=== PATIENT | female | born 1955 | race Caucasian/White ===

== ENCOUNTER → 2018-02-16 08:12 | Outpatient (CLI) | payer BC, SELFPAY ==
--- NOTE | 2018-02-16 08:15 | BI_ITS ---
MAMMOGRAPHY - BILATERAL SCREENING REASON FOR EXAM: Female, 62 years old. Routine annual screening examination. PERTINENT HISTORY: Grandmother with breast cancer. TECHNIQUE: Digital bilateral breast jacob (3D mammographic acquisition) in the CC and MLO projections. 2-D mediolateral oblique (MLO) and craniocaudad (CC) views of both breasts were obtained. CAD: Full Field Digital Mammography with Computer Added Detection was performed. COMPARISON: Comparison is made with prior study dated January 20, 2017 and August 05, 2015. FINDINGS: Breast Composition: There are scattered areas of fibroglandular density. There are no dominant masses or suspicious calcifications. No other significant abnormalities are identified. There has been no significant change since the prior study. BI/SCREENING MAMM (CAD), BILAT IMPRESSION: Stable bilateral screening mammogram. Yearly follow-up mammogram recommended. (A) ASSESSMENT CATEGORY: BIRADS Category 1: Negative. A letter regarding these results will be sent to the patient by the facility within 30 days. Approximately 10% of breast cancers are not detected by mammography. A normal mammogram should not delay biopsy of a clinically suspicious abnormality. [id number] Electronically Signed: Johan Bui MD at 9:35 EST Tel [phone], Service support ,
== END ==
PROVIDERS: Family Provider Family Medicine; PCP Family Medicine; Referring Provider Family Medicine; Visit Provider Family Medicine
DX: Z00.00 Encounter for general adult medical examination without abnormal findings (principal); Z12.31 Encounter for screening mammogram for malignant neoplasm of breast
CPT/HCPCS: 77063; 77067

== ENCOUNTER → 2019-02-21 08:24 | Outpatient (CLI) | payer BC, SELFPAY ==
--- NOTE | 2019-02-21 08:26 | BI_ITS ---
MAMMOGRAPHY - BILATERAL SCREENING REASON FOR EXAM: Female, 63 years old. Routine annual screening examination. PERTINENT HISTORY: Grandmother with breast cancer. TECHNIQUE: Digital bilateral breast jacob (3D mammographic acquisition) in the CC and MLO projections. 2-D mediolateral oblique (MLO) and craniocaudad (CC) views of both breasts were obtained. CAD: Full Field Digital Mammography with Computer Added Detection was performed. COMPARISON: Comparison is made with prior study dated February 16, 2018 and January 20, 2017. FINDINGS: Breast Composition: There are scattered areas of fibroglandular density. There are no dominant masses or suspicious calcifications. Stable small bilateral axillary lymph nodes. No other significant abnormalities are identified. There has been no significant change since the prior study. BI/SCREENING MAMM (CAD), BILAT IMPRESSION: Stable bilateral screening mammogram. Yearly follow-up mammogram recommended. (A) ASSESSMENT CATEGORY: BIRADS Category 2: Benign. A letter regarding these results will be sent to the patient by the facility within 30 days. Approximately 10% of breast cancers are not detected by mammography. A normal mammogram should not delay biopsy of a clinically suspicious abnormality. [id number] Electronically Signed: Johan Bui, at 9:52 EST , Service support ,
== END ==
PROVIDERS: Family Provider Family Medicine; PCP Family Medicine; Referring Provider Family Medicine; Visit Provider Family Medicine
DX: Z12.31 Encounter for screening mammogram for malignant neoplasm of breast (principal)
CPT/HCPCS: 77063; 77067

== ENCOUNTER → 2020-02-28 07:57 | Outpatient (CLI) | payer BC, SELFPAY ==
--- NOTE | 2020-02-28 08:00 | BI_ITS ---
MAMMOGRAPHY - BILATERAL SCREENING REASON FOR EXAM: Female, 64 years old. Routine annual screening examination. PERTINENT HISTORY: Grandmother with breast cancer. TECHNIQUE: Digital bilateral breast gurjit (3D mammographic acquisition) in the CC and MLO projections. 2-D mediolateral oblique (MLO) and craniocaudad (CC) views of both breasts were obtained. CAD: Full Field Digital Mammography with Computer Added Detection was performed. COMPARISON: Comparison is made with prior study dated 02/21/2019 and 02/16/2018. FINDINGS: Breast Composition: There are scattered areas of fibroglandular density. There are no dominant masses or suspicious calcifications. Stable benign appearing bilateral axillary lymph nodes. No other significant abnormalities are identified. There has been no significant change since the prior study. BI/SCREEN MAMM (CAD) W/GURJIT BILAT IMPRESSION: Stable bilateral screening mammogram. Yearly follow-up mammogram recommended. (A) ASSESSMENT CATEGORY: BIRADS Category 2: Benign. A letter regarding these results will be sent to the patient by the facility within 30 days. Approximately 10% of breast cancers are not detected by mammography. A normal mammogram should not delay biopsy of a clinically suspicious abnormality. [id number] Electronically Signed: Johan Bui, at 8:30 EST , Service support ,
== END ==
PROVIDERS: PCP Family Medicine; Referring Provider Family Medicine; Visit Provider Family Medicine
DX: Z12.31 Encounter for screening mammogram for malignant neoplasm of breast (principal)
CPT/HCPCS: 77063; 77067

== ENCOUNTER 2020-06-29 15:21 | Outpatient (RCR) | payer BC, SELFPAY ==
[2020-06-29] MEDS: COVID-19 VACC, MRNA(PFIZER)/PF 30 MCG/0.3 ML SYRINGE IM (09:38)
[2020-07-20] MEDS: COVID-19 VACC, MRNA(PFIZER)/PF 30 MCG/0.3 ML SYRINGE IM (09:28)
== END 2020-09-21 23:59 ==
LOC: IMMUN 15:21
PROVIDERS: PCP Family Medicine; Visit Provider Family Medicine
DX: Z23 Encounter for immunization (principal)
CPT/HCPCS: 0001A; 0002A; 91300

== ENCOUNTER → 2020-11-08 16:17 | Outpatient (CLI) | payer MEDICARE, BC, SELFPAY ==
[2020-11-08 16:28] LABS: Lyme Ab Screen Interpretation REF LAB
[2020-11-08 17:57] LABS: Absolute Lymphocyte Count 2.15 X10^3/uL (0.83-4.51); Absolute Neutrophil Count 7.6 X10^3/uL (2.0-7.7); Basophil# 0.02 X10^3/uL; Basophil% 0.2 % (0-1); Eosinophil# 0.03 X10^3/uL; Eosinophils% 0.3 % (0-5); Hematocrit 40.8 % (37-47); Hemoglobin 13.3 g/dL (12.0-15.0); Lymphocyte # 2.15 X10^3/ul (0.83-4.51); Lymphocyte % 20.2 % (19-41); Mean Corp Hgb Conc 32.6 g/dL (32-36); Mean Corpuscular Hgb 29.8 pg (27.0-32.0); Mean Corpuscular Volume 91.5 fL (81-99); Mean Platelet Vol. 12.1 fl (6.2-12.0); Monocyte# 0.81 X10^3/uL; Monocyte% 7.6 % (0-10); NRBC Flagged by Analyzer 0 % (0-5); Neutrophil # 7.63 X10^3/uL (2.7-7.7); Neutrophil % 71.5 % (47-70); Platelet Count 189 K/mm3 (150-450); RBC Distribution Width SD 47.3 fl (35.1-43.9); Red Blood Count 4.46 M/mm3 (4.2-5.4); White Blood Count 10.7 K/mm3 (4.4-11.0)
[2020-11-08 19:07] LABS: ALB/GLOB Ratio 1.2 RATIO (0.9-2.4); AST(SGOT) 28 U/L (15-37); Alanine Aminotransfer ALT/SGPT 23 U/L (13-56); Albumin, Serum 3.9 g/dL (3.2-5.0); Alkaline Phosphatase 94 U/L (45-117); Anion Gap 8 (5-15); BUN 8 mg/dL (7-18); BUN/Creat Ratio 15.1 RATIO (10-20); Calcium,Total 8.9 mg/dL (8.5-10.1); Chloride 105 mmol/L (98-107); Creatinine, Serum 0.53 mg/dL (0.55-1.02); EST Glomerular Filtration Rate 123 mL/min (>60); Est Glom Filt Rate - Afr Amer 149 mL/min (>60); Globulin 3.3 g/dL (2.2-4.2); Glucose 85 mg/dL (74-106); Potassium 3.5 mmol/L (3.5-5.1); Protein, Total 7.2 g/dL (6.4-8.2); Sodium Level 140 mmol/L (136-145)
[2020-11-10 14:46] LABS: Lyme Scn Total Ab w/Rflx <0.91 ISR (0.00-0.90)
== END ==
PROVIDERS: PCP Family Medicine; Visit Provider Family Medicine
DX: T14.8XXA Other injury of unspecified body region, initial encounter (principal); W57.XXXA Bitten or stung by nonvenomous insect and other nonvenomous arthropods, initial encounter
CPT/HCPCS: 36415; 80053; 85025; 86618

== ENCOUNTER → 2021-03-03 08:14 | Outpatient (CLI) | payer MEDICARE, BC, SELFPAY ==
--- NOTE | 2021-03-03 08:20 | BI_ITS ---
MAMMOGRAPHY - BILATERAL SCREENING REASON FOR EXAM: Female, 65 years old. Routine annual screening examination. PERTINENT HISTORY: Grandmother with breast cancer. TECHNIQUE: Digital bilateral breast gurjit (3D mammographic acquisition) in the CC and MLO projections. 2-D mediolateral oblique (MLO) and craniocaudad (CC) views of both breasts were obtained. CAD: Full Field Digital Mammography with Computer Added Detection was performed. COMPARISON: Comparison is made with prior study dated 02/28/2020 and 02/21/2019. FINDINGS: Breast Composition: There are scattered areas of fibroglandular density. There are no dominant masses or suspicious calcifications. Stable small benign-appearing bilateral axillary lymph nodes. No other significant abnormalities are identified. There has been no significant change since the prior study. BI/SCRN MAMM (CAD)W/GURJIT BILAT IMPRESSION: Stable bilateral screening mammogram. Yearly follow-up mammogram recommended. (A) ASSESSMENT CATEGORY: BIRADS Category 2: Benign. A letter regarding these results will be sent to the patient by the facility within 30 days. Approximately 10% of breast cancers are not detected by mammography. A normal mammogram should not delay biopsy of a clinically suspicious abnormality. [id number] Electronically Signed: Johan Bui MD at 9:19 EST , Service support ,
--- NOTE | 2021-03-03 09:06 | BD_ITS ---
STUDY: DUAL ENERGY X-RAY ABSORPTIOMETRY / DXA REASON FOR EXAM: Female, 65 years old. 627.8Menopausal postmenopausalBONE DENSITY REASON FOR EXAM TECHNIQUE: Bone Mineral Density (BMD) measurements of lumbar spine and bilateral hips were obtained. COMPARISON: None. FINDINGS: Lumbar Spine (L1-L4): g/cm2 (0.653) / T-score (-3.3) / Z-score (-1.6) Findings are suggestive of osteoporosis with a high fracture risk. Left Femur Total: g/cm2 (0.713) / T-score (-1.9) / Z-score (-0.6) Left Femoral Neck: g/cm2 (0.595) / T-score (-2.3) / Z-score (-0.8) Right Femur Total: g/cm2 (0.694) / T-score (-2.0) / Z-score (-0.8) Right Femoral Neck: g/cm2 (0.557) / T-score (-2.6) / Z-score (-1.1) BD/Dexa Bone Density Study IMPRESSION: The patient is considered osteoporotic as outlined below according to World Adria Organization (WHO) criteria with a high fracture risk. Reference Information: The T-score is the number of standard deviations above or below the standard which is normal for young adults at their peak bone mineral density. The World Health Organization (WHO) interprets the T-scores as follows: Above -1 Normal bone density Between -1 and -2.5 Osteopenia Equal to / or below -2.5 Osteoporosis As a practical clinical guideline, osteopenia may be graded as follows: Mild -1 through -1.5 Moderate -1.6 through -2.0 Severe -2.1 through -2.4 The Z-score is the number of standard deviations above or below age-matched controls. A Z-score of less than -1.5 would be considered abnormal. References: 1. NIH Osteoporosis and Related Bone Diseases www osteo.org 2. International Society for Clinical Densitometry www iscd.org 3. National Osteoporosis Foundation www nof.org Electronically Signed: Johan Bui MD at 15:26 EST , Service support ,
== END ==
PROVIDERS: PCP Family Medicine; Referring Provider Family Medicine; Visit Provider Family Medicine
DX: Z00.00 Encounter for general adult medical examination without abnormal findings (principal); Z12.31 Encounter for screening mammogram for malignant neoplasm of breast; Z78.0 Asymptomatic menopausal state
CPT/HCPCS: 77063; 77067; 77080

== ENCOUNTER → 2021-03-09 09:11 | Outpatient (CLI) | payer MEDICARE, BC, SELFPAY ==
[2021-03-09 11:07] LABS: PTHIN 49.3 pg/mL (18.4-80.1)
[2021-03-09 11:10] LABS: Vitamin D,25 Hydroxy 36.9 ng/mL
[2021-03-09 11:19] LABS: Anion Gap 8 (5-15); BUN 8 mg/dL (7-18); Chloride 105 mmol/L (98-107); Creatinine, Serum 0.61 mg/dL (0.55-1.02); EST Glomerular Filtration Rate 104 mL/min (>60); Est Glom Filt Rate - Afr Amer 125 mL/min (>60); Glucose 108 mg/dL (74-106); Magnesium 2.3 mg/dL (1.6-2.6); Phosphorus 3.6 mg/dL (2.5-4.9); Potassium 4.2 mmol/L (3.5-5.1); Sodium Level 140 mmol/L (136-145); Thyroid Stim Hormone (TSH) 1.04 uIU/mL (0.358-3.74)
== END ==
PROVIDERS: PCP Family Medicine; Referring Provider Family Medicine; Visit Provider Family Medicine
DX: M81.0 Age-related osteoporosis without current pathological fracture (principal)
CPT/HCPCS: 80048; 82306; 82330; 83735; 83970; 84100; 84443

== ENCOUNTER → 2021-12-06 | Outpatient (CLI) | payer MEDICARE, BC, SELFPAY ==
[2021-12-06 13:03] LABS: PTHIN 49.2 pg/mL (18.4-80.1)
[2021-12-06 13:04] LABS: Vitamin D,25 Hydroxy 49.2 ng/mL
[2021-12-06 13:36] LABS: Anion Gap 5 (5-15); BUN 8 mg/dL (7-18); BUN/Creat Ratio 11.4 RATIO (10-20); Chloride 110 mmol/L (98-107); Cholesterol 233 mg/dL (200); EST Glomerular Filtration Rate 89 mL/min (>60); Est Glom Filt Rate - Afr Amer 107 mL/min (>60); Glucose 109 mg/dL (74-106); High Density Lipoprotein 53 mg/dL; Potassium 4.3 mmol/L (3.5-5.1); Sodium Level 141 mmol/L (136-145); Triglycerides 135 mg/dL; Very Low Density Lipoprotein 27 mg/dL (5-40)
== END | disposition home or self-care (01) ==
LOC: MFPLAB 10:25
PROVIDERS: PCP Family Medicine; Visit Provider Family Medicine
DX: M81.0 Age-related osteoporosis without current pathological fracture (principal); E78.5 Hyperlipidemia, unspecified
CPT/HCPCS: 36415; 80048; 80061; 82306; 82330; 83970; 84443

== ENCOUNTER 2022-03-06 08:26 | Outpatient (CLI) | payer MEDICARE, BC, SELFPAY ==
--- NOTE | 2022-03-06 08:27 | BI_ITS ---
MAMMOGRAPHY - BILATERAL SCREENING REASON FOR EXAM: Female, 66 years old. Routine annual screening examination. PERTINENT HISTORY: Grandmother with breast cancer. TECHNIQUE: Digital bilateral breast gurjit (3D mammographic acquisition) in the CC and MLO projections. 2-D mediolateral oblique (MLO) and craniocaudad (CC) views of both breasts were obtained. CAD: Full Field Digital Mammography with Computer Added Detection was performed. COMPARISON: Mammogram from 03/03/2021, 02/28/2020. FINDINGS: Breast Composition: There are scattered areas of fibroglandular density. There are no dominant masses or suspicious calcifications. No other significant abnormalities are identified. There has been no significant change since the prior study. BI/SCRN MAMM (CAD)W/GURJIT BILAT IMPRESSION: Stable bilateral screening mammogram. Yearly follow-up mammogram recommended. (A) ASSESSMENT CATEGORY: BIRADS Category 1: Negative. A letter regarding these results will be sent to the patient by the facility within 30 days. Approximately 10% of breast cancers are not detected by mammography. A normal mammogram should not delay biopsy of a clinically suspicious abnormality. Electronically Signed: Chase Mcguire, at 16:42 EST ,
== END 2022-03-06 23:59 | disposition home or self-care (01) ==
LOC: OPBI 08:26
PROVIDERS: PCP Family Medicine; Visit Provider Family Medicine
DX: Z12.31 Encounter for screening mammogram for malignant neoplasm of breast (principal); Z80.3 Family history of malignant neoplasm of breast
CPT/HCPCS: 77063; 77067

== ENCOUNTER → 2022-09-19 | Outpatient (CLI) | payer MEDICARE, BC, SELFPAY ==
--- NOTE | 2022-09-19 08:48 | BI_ITS ---
MAMMOGRAPHY - UNILATERAL DIAGNOSTIC: LEFT BREAST REASON FOR EXAM: Female, 67 years old. Two-week history of a left breast lump. PERTINENT HISTORY: Grandmother with breast cancer. TECHNIQUE: Digital unilateral breast jacob (3D mammographic acquisition) in the CC and MLO projections. 2-D mediolateral oblique (MLO) and craniocaudad (CC) views of both breasts were obtained. CAD: Full Field Digital Mammography with Computer Added Detection was performed. COMPARISON: Comparison is made with prior study March 06, 2022. FINDINGS: Breast Composition: There are scattered areas of fibroglandular density. The palpable lump corresponds to a 2 cm x 1.2 cm spiculated nodule in the central slightly lateral aspect of the left breast. Correlation with ultrasound is recommended. No other significant abnormalities are identified. BI/DIAG MAMM W/CAD, UNILAT IMPRESSION: The palpable lump corresponds to a 2 cm x 1.2 cm spiculated nodule in the central slightly lateral aspect of the left breast. Correlation with ultrasound is recommended. ASSESSMENT CATEGORY: BIRADS Category 0: Incomplete. Need additional imaging evaluation. A letter regarding these results will be sent to the patient by the facility within 30 days. Approximately 10% of breast cancers are not detected by mammography. A normal mammogram should not delay biopsy of a clinically suspicious abnormality. Electronically Signed: Johan Bui MD at 10:22 EDT ,
--- NOTE | 2022-09-19 08:48 | US_ITS ---
STUDY: ULTRASOUND BREAST - LEFT REASON FOR EXAM: Female, 67 years old. Palpable lump left breast. Abnormal screening mammogram. TECHNIQUE: Axial and longitudinal images of the LEFT breast were performed with a high resolution ultrasound transducer. # OF IMAGES: 46 COMPARISON: Comparison is made with prior mammogram done earlier today. FINDINGS: LEFT Breast: The mammographic abnormality corresponds to a 1.3 cm x 0.8 cm x 0.9 cm spiculated hypoechoic solid nodule at the 4:00 position of the breast at 2 cm from the nipple. Biopsy is recommended. US/Breast Limited Unilateral IMPRESSION: 1.3 cm x 0.8 cm x 0.9 seconds thick liquid and a hypoechoic solid nodule at the 4:00 position of the breast at 2 cm from the nipple. Biopsy recommended. ASSESSMENT CATEGORY: BIRADS Category 4: Suspicious - Biopsy Should Be Considered. A letter regarding these results will be sent to the patient by the facility within 30 days. Electronically Signed: Johan Bui MD at 10:24 EDT ,
== END | disposition home or self-care (01) ==
LOC: OPBI 08:46
PROVIDERS: PCP Family Medicine; Referring Provider Nurse Practitioner Family; Visit Provider Nurse Practitioner Family
DX: N63.23 Unspecified lump in the left breast, lower outer quadrant (principal)
CPT/HCPCS: 76642; 77061; 77065; G0279

== ENCOUNTER → 2022-09-22 | Outpatient (CLI) | payer MEDICARE, BC, SELFPAY ==
--- NOTE | 2022-09-22 | BRBX_PTH ---
PATIENT: COLTON CRABTREE LOC: [facility] U#:[id number] AGE/SX: 67/F ROOM: RE09/22/[address]: Dr. Thaddeus Daniel MD : 1955 BED: DIS: 09/22/2022 SPEC #: [id number] RECD: 09/22/22 13:24 STATUS: WILMA SHARON #: [id number] JOANNE: 09/22/22 00:[address]: Thaddeus Daniel DEPT: SURGICAL PATHOLOGY RECD BY: Ariel Flanagan Tissues: Left breast, NOS Procedures: Surgery Specimen Level IV HEADER OPERATION: Left breast nodule biopsy PRE-OP DIAGNOSIS: Left breast nodule TISSUE SUBMITTED: Left breast tissue MICROSCOPIC DIAGNOSIS Left breast nodule, core biopsy: Invasive lobular carcinoma, nuclear grade 1 (1.5 cm in greatest length). See comment. TERRIE:ta 09/25/2022 COMMENT Immunohistochemistry ([id number]) supports the above diagnosis. ER/ND/Sxi3djy studies are being performed on sections of tumor and the results from this study will be reported separately ([id number]). MICROSCOPIC DESCRIPTION Slides are reviewed. GROSS DESCRIPTION Received in fixative is one container labeled with the patient's name and designated left breast. The specimen consists of multiple elongated fragments of leach-yellow fibroadipose tissue that in aggregate measure 1.5 x 0.5 x 0.1 cm. The entire specimen is submitted in one cassette. / SJ:ta 09/22/2022 TC:0 CPT: 03257 ADDENDUM ADDENDUM ADDENDUM ADDENDUM ADDENDUM ADDENDUM ADDENDUM ADDENDUM 12/20/2022 09:55 ADDENDUM 12/20/2022 09:55 ADDENDUM 12/20/2022 09:55 ADDENDUM 12/20/2022 09:55 ADDENDUM 12/20/2022 09:55 An order for Oncotype testing was received from Dr. Beaulieu. This necessitated case review, block and slide selection by pathologist at [facility]. Breast Cancer Recurrence Score = 9 Results of the complete Oncotype testing ([employer] report) are viewable in EMR under: Reports - Pathology - Lab Pathology Report, Scanned.
--- NOTE | 2022-09-22 | IMM_PTH ---
PATIENT: COLTON CRABTREE LOC: [facility] U#:[id number] AGE/SX: 67/F ROOM: RE09/22/[address]: Dr. Thaddeus Daniel MD : 1955 BED: DIS: 09/22/2022 SPEC #: [id number] RECD: 09/25/22 13:10 STATUS: WILMA REQ #: [id number] JOANNE: 09/22/22 00:[address]: Thaddeus Daniel DEPT: IMMUNOHISTOCHEMISTRY RECD BY: Queta Mak Tissues: Left breast, NOS Procedures: CALPONIN-1 (add) CK5-6 (add) CK8 (add) E-CAD (add) HER2 JOHN (add) KI-67 (add) P53 (add) TX (add) P40 (add) ER (initial) PHYSICIAN & INSTITUTION [place] [id number] SPECIMEN INFORMATION: Tissue Source: Left breast nodule Clinical Info: : Left breast nodule Specimen Number: [id number] CPT code: 03033, 08322 x6, 50273 x3 METHODOLOGY: Deparaffinized sections of prefer/formalin-fixed tissue or PAP/DQ stained slides are incubated with monoclonal/polyclonal antibodies/oligonucleotide probes. Localization is made via biotin free immunoperoxidase method. Appropriate controls are performed and reacted as expected. Results on target cell population are indicated in the following table: RESULTS: ANTIBODY / CLONE RESULT E-Cad (ECH-6) negative CK8 (03awypX38) positive Calponin-1 (RO188T) negative CK5-6 (D5 & 1684) negative P40 (BC28) negative P53 (DO-7) positive, focal, wild type pattern Ki-67 (30-9) positive, low ~10% MORPHOMETRIC ANALYSIS ER (clone 6F11) >95%, strong intensity TX (clone 16/1E2) >95%, strong intensity Her-2Neu (clone CB11) 0-1+ The prognostic test for HER2 is performed on formalin-fixed paraffin embedded tissue. A 3+ (positive) staining pattern is defined as intense, homogeneous, complete, circumferential membranous staining in >10% of contiguous tumor cells. A similar weak (2+) staining pattern is interpreted as equivocal. LASHELL follow-up testing is recommended for all equivocal cases. Positivity/negativity for ER/TX is reported if > or < 1% of the tumor cells are immuno- reactive, respectively. The ASCO/CAP criteria is used for scoring. Reference: Journal of Clinical Oncology, 2013; 31:2431-7576 & 2010; 16:6434-5175. Duration of fixation: 59.5 Hrs; Sample Adequate: Yes. These assays have not been validated on decalcified tissues. Results should be interpreted with caution given the likelihood of false negativity on decalcified specimens. These tests were developed and their performance characteristics determined by [facility]. They may not have been cleared or approved by the U.S. Food and Drug Administration. The FDA has determined that such clearance or approval is not necessary. The above immunohistochemical/dualISH markers are ordered and reviewed by the Pathologist. INTERPRETATION: Left breast nodule, core biopsy: Invasive lobular carcinoma. Positive for estrogen receptors (favorable prognostic indicator). Positive for progesterone receptors (favorable prognostic indicator). Negative for overexpression of XQJ6iwx. SJ:ta 09/26/2022
== END | disposition home or self-care (01) ==
LOC: LABSPEC 11:38
PROVIDERS: Referring Provider Surgery; Visit Provider Surgery
DX: N63.20 Unspecified lump in the left breast, unspecified quadrant (principal)
CPT/HCPCS: 88305; 88341; 88342

== ENCOUNTER 2022-10-04 10:53 | Outpatient (CLI) | payer MEDICARE, BC, SELFPAY ==
--- NOTE | 2022-10-04 11:09 | MRI_ITS ---
STUDY: BILATERAL BREAST MR WITHOUT AND WITH CONTRAST REASON FOR EXAM: Female, 67 years old. Breast lump. Positive biopsy for lobular carcinoma of the breast. TECHNIQUE: Multi-sequence multi-echo imaging of both breasts was performed with a dedicated breast coil. T1-weighted and T2-weighted images were performed before the administration of contrast. T1-weighted images were also performed after the intravenous administration of IV 14 CC of CLARISCAN contrast. COMPARISON: Prior mammograms dated March 03, 2021, March 06, 2022 and September 19, 2022. Left breast ultrasound dated September 19, 2022. FINDINGS: RIGHT BREAST: Fatty replaced breast tissue with minimal background enhancement. No abnormal enhancing masses or areas of non-mass enhancement in the right breast. LEFT BREAST: Fatty replaced breast tissue with minimal background enhancement. Irregular enhancing mass in the left breast at approximately the 4:00 position measuring 2.8 cm x 1.3 cm x 1.5 cm corresponding to the index lesion noted on mammogram and ultrasound. No other enhancing areas identified. Shotty lymph nodes in the axilla with no enlargement. No abnormality in the visualized regions of the chest or liver. MRI/Breast Bilateral W/O and W IMPRESSION: Irregular enhancing mass in the left breast corresponding to the findings on mammogram and ultrasound and representing the index lesion. No other abnormality. CATEGORY: BIRADS Category 6: Known Biopsy-Proven Malignancy - Appropriate Action Should Be Taken. A letter regarding these results will be sent to the patient by the facility within 30 days. Electronically Signed: Raymond Kan MD at 9:35 EDT ,
[2022-10-04 11:43] LABS: CREATININE FINGERSTICK < 0.9 mg/dL (0.55-1.02); EGFR FINGERSTICK > 60.0000 mL/min (>60)
== END 2022-10-04 23:59 | disposition home or self-care (01) ==
LOC: MRI 10:55
PROVIDERS: PCP Family Medicine; Referring Provider Surgery; Visit Provider Surgery
DX: C50.912 Malignant neoplasm of unspecified site of left female breast (principal)
CPT/HCPCS: 77049; A9575; A4216; C8908

== ENCOUNTER 2022-10-24 08:33 | Day surgery (SDC) | payer MEDICARE, BC, SELFPAY ==
--- NOTE | 2022-10-24 | IMM_PTH ---
PATIENT: COLTON CRABTREE LOC: [facility] [place] U#:[id number] AGE/SX: 67/F ROOM: RE10/24/[address]: Dr. Thaddeus Daniel MD : 1955 BED: DIS: 10/24/2022 SPEC #: [id number] RECD: 10/27/22 13:01 STATUS: WILMA REWaylon #: [id number] JOANNE: 10/24/22 00:[address]: Thaddeus Daniel DEPT: IMMUNOHISTOCHEMISTRY RECD BY: Gisell Hurtado ENTERED: 10/27/22 13:02 SP TYPE: IMMUNO OTHR DR: Dr. Curt Weiss MD Tissues: A - Lymph node, NOS Procedures: CK8 (initial) CK8 (add) Pankeratin (add) PHYSICIAN & INSTITUTION [place] [id number] SPECIMEN INFORMATION: Tissue Source: Left breast axillary sentinel nodes Clinical Info: Invasive lobular carcinoma of left breast Specimen Number: [id number] A1 & A2 CPT code: 47256, 95139 x3 METHODOLOGY: Deparaffinized sections of prefer/formalin-fixed tissue or PAP/DQ stained slides are incubated with monoclonal/polyclonal antibodies/oligonucleotide probes. Localization is made via biotin free immunoperoxidase method. Appropriate controls are performed and reacted as expected. Results on target cell population are indicated in the following table: RESULTS: ANTIBODY / CLONE RESULT Block A1 CK8 (07jhpqT55) negative AE1-3 (AE1/AE3/PCK26) negative Block A2 CK8 (04sctqJ45) negative AE1-3 (AE1/AE3/PCK26) negative These tests were developed and their performance characteristics determined by [facility]. They may not have been cleared or approved by the U.S. Food and Drug Administration. The FDA has determined that such clearance or approval is not necessary. The above immunohistochemical/dualISH markers are ordered and reviewed by the Pathologist. INTERPRETATION: Left axillary sentinel lymph nodes, biopsy: Two out of two lymph nodes negative for carcinoma. AM:ta 10/30/2022
--- NOTE | 2022-10-24 08:40 | NM_ITS ---
PROCEDURE: NUCLEAR MEDICINE Injection Marcus Hook Node - LEFT breast(s). REASON FOR EXAM: Female, 67 years old. TECHNIQUE: Marcus Hook node localization using left breast cancer. Radionuclide methods of the LEFT breast(s) was performed following subcutaneous administration of 1.1 mCi of of sulfur colloid Tc-99m. FINDINGS: 1.1 mCi of technetium labeled sulfur colloid was injected subcutaneously in 4 equal aliquots in the left periareolar region. NM/Lymph Node Injection Only IMPRESSION: Subcutaneous injection of 1.1 mCi of technetium labeled sulfur colloid for sentinel node imaging. Electronically Signed: Johan Bui MD at 10:39 EDT ,
[2022-10-24 09:09] VITALS: BP 122/56; PULSE 67; RESP 16; TEMP 36.7; O2SAT 94; BMI 24.0
[2022-10-24] MEDS: Lactated Ringers 1,000 ML 15 ML IV (09:16)
--- NOTE | 2022-10-24 11:41 | PCM.HP.BLA ---
History and Physical Date of Admission: 10/24/22 Intake Intake Visit Reasons: DISCUSS MRI RESULTS Chief Complaint: discuss MRI results Allergies erythromycin base Allergy (Verified 10/13/22 14:11) Hives Medications calcium carbonate 500 mg calcium (1,250 mg) chewable tablet (Calcium 500) 500 mg PO DAILY 09/22/22 [History Confirmed 10/13/22] cholecalciferol (vitamin D3) 25 mcg (1,000 unit) capsule 25 mcg PO DAILY 09/22/22 [History Confirmed 10/13/22] PFSH Medical History (Updated 10/18/22 @ 09:30 by Maranda Alcazar) Skin lesion Social History Smoking Status: Never smoker alcohol intake: current substance use type: does not use HPI HPI HPI: Patient is a 67-year-old female here with left breast cancer. Patient is here to discuss surgery. ROS General General: No weight change or fatigue HEENT HEENT: No difficulty swallowing Endo Endocrine: No thyroid disease Musc Musculoskeletal: No back problems or arthritis Cardio Cardiovascular: No pacemaker, heart disease, atrial fibrillation, high blood pressure, heart attack, heart stent, palpitations or chest pain Psych Psychiatric: No depression or anxiety Resp Respiratory: No shortness of breath, No cough, No COPD, No asthma and No emphysema Gastro Gastrointestinal: No abdominal pain, No nausea or vomiting, No diarrhea, No constipation, No blood in stool, No acid reflux, No hemorrhoids, No ulcers, No gallbladder problem and No black,tarry stools Vel Hematologic: No blood thinners Exam Const General: cooperative Orientation: alert and oriented x3 HENMT Head: normal to inspection Neck Neck: normal visual inspection and full ROM Chest Chest palpation & inspection: normal inspection of the chest Resp Effort & Inspection: normal respiratory effort Auscultation: clear to auscultation bilaterally Cardio Rate: regular rate Rhythm: regular rhythm GI Inspection: non-distended Palpation: soft and nontender Skin General: no rashes or lesions noted Neuro General: patient alert and patient oriented x3 Extrem General: full ROM Psych Appearance: grossly normal Mental Status: mental status grossly normal Assessment and Plan Assessment and Plan (1) Invasive lobular carcinoma of left breast in female: Status: Acute Plan: Patient has an invasive lobular cancer of the left breast. It is in the lower outer quadrant. She had an MRI which did not show any further lesions in either breast. I discussed partial mastectomy with her with sentinel lymph node biopsy. Patient understands the risks including but not limited to bleeding, infection, need for further surgery for margins, nerve injury, hematoma formation or seroma formation. Patient will be scheduled for left partial mastectomy with sentinel lymph node biopsy. Thaddeus Daniel MD Pager: [facility] [address] [place] [address], [address] [place] [address] Office: I have examined the patient and the H&P has been reviewed. There are no clinical changes since date of exam.
[2022-10-24] MEDS: Cefazolin 2 GM in 0.9% Normal Saline 100 ML IV (11:56)
--- NOTE | 2022-10-24 12:00 | BRBX_PTH ---
PATIENT: COLTON CRABTREE LOC: [facility] [place] U#:[id number] AGE/SX: 67/F ROOM: RE10/24/[address]: Dr. Thaddeus Daniel MD : 1955 BED: DIS: 10/24/2022 SPEC #: [id number] RECD: 10/24/22 12:40 STATUS: WILMA SHARON #: [id number] JOANNE: 10/24/22 12:[address]: Thaddeus Daniel DEPT: SURGICAL PATHOLOGY RECD BY: Gisell Hurtado ENTERED: 10/24/22 14:31 SP TYPE: BREAST BX OTHR DR: Dr. Curt Weiss MD Tissues: A - LYMPH NODE BIOPSY B - Left breast, NOS C - Left breast, NOS D - Left breast, NOS E - Left breast, NOS Procedures: Frozen Section (charge) Surgery Specimen Level IV Surgery Specimen Level V HEADER OPERATION: Breast ultrasound guided wire localization, partial mass PRE-OP DIAGNOSIS: Invasive lobular carcinoma of left breast TISSUE SUBMITTED: A. Left breast axillary sentinel nodes, B. Left breast mass, C. Left breast skin lesion, D. Left breast new anterior margin, E. Left breast new superior margin FROZEN SECTION DIAGNOSIS A. Left axillary sentinel lymph nodes, biopsy: Two of two lymph nodes negative for carcinoma. AM:ale 10/24/2022 MICROSCOPIC DIAGNOSIS A. Left breast axillary sentinel lymph nodes, biopsy: Two out of two lymph nodes, negative for carcinoma. See comment. B. Left breast mass, lumpectomy: Invasive lobular carcinoma. Lobular carcinoma in situ. Atypical lobular hyperplasia. See cancer template below. C. Left breast skin lesion, biopsy: Seborrheic keratosis. D. Left breast, new anterior margin, biopsy: No evidence of carcinoma. E. Left breast, new superior margin, biopsy: Invasive lobular carcinoma extending to new margin of excision. Lobular carcinoma in situ (<0.1 mm from new margin). See comment. AM:ta 10/30/2022 COMMENT A. Immunohistochemistry ([id number]) supports the above diagnosis. E. Sections show a 4 mm invasive lobular carcinoma extending to the inked and cauterized anterior margin of excision. Clinical correlation is suggested. INVASIVE BREAST CANCER SUMMARY: Procedure - excision with wire guidance Specimen: Type - partial breast Size - 5.5 x 4.0 x 3.0 cm Laterality - left breast Tumor: Site - not specified Size - 1.8 x 1.5 x 1.5 cm Histologic type - invasive lobular carcinoma. Focality - single focus of invasive carcinoma. Histologic Grade (Grandy grade): Glandular/tubular differentiation - score 3 Nuclear pleomorphism - score 2 Mitotic count - score 1 Overall grade - 2 (score of 6) Ductal carcinoma in situ: Not present Lobular carcinoma in situ (LCIS) - present Tumor extension: Skin - not applicable Nipple - not applicable Skeletal muscle - no skeletal muscle present. Margins: Tumor extends focally to the inked anterior margin of excision. Distance of in situ carcinoma from closest margin - 0.1 mm (superior margin) Lymph nodes: Number of sentinel lymph nodes examined - 2 Total number of lymph nodes examined (sentinel and nonsentinel) - 2 Number of lymph nodes with macrometastases, micrometastases and isolated tumor cells - 0 See specimen A. Treatment effect: Unknown Lymphvascular invasion - not identified Additional pathologic findings - atypical lobular hyperplasia and fibrocystic change. Ancillary studies - previously performed on section of tumor ([id number] / [id number]). ER - >95%, strong intensity MN - >95%, strong intensity Her2 eusebio - 0-1+ (negative) PATHOLOGIC STAGE: pT N M The above summary is in compliance with [employer] (CAP) Cancer Protocols Checklist and [place] Joint Committee on Cancer (AJCC), Staging Manual, 8th Ed. Case has been reviewed in consultation with Dr. Nichole who concurs with the above diagnosis. IDC:SJ MICROSCOPIC DESCRIPTION Slides are reviewed. GROSS DESCRIPTION A. Received fresh for frozen section consultation labeled with the patient's name is a specimen designated left axillary sentinel lymph nodes. The specimen consists of one irregular fragment of light leach soft tissue that measures x x cm. The specimen is totally submitted in two cassettes. / 10/24/2022 B. Received fresh for intraoperative consultation labeled with the patient name and designated left breast mass. is a piece of fibroadipose tissue measuring 5.5 x 4x 3.0 cm. The specimen is oriented by sutures, short superior and long lateral. The specimen is inked as follows: anterior - yellow, posterior - black, superior - blue, inferior - green, medial - red and lateral - orange. Serial sections reveal a leach indurated mass measuring 1.8 x 1.5 x 1.5 cm. The tumor is very close to the anterior margin, however, does not appear to be transected. This information is conveyed to the surgeon intraoperatively. Section of?the rest of the specimen reveal leach yellow adipose cut surfaces mixed with fibrous area. The specimen is totally submitted in 12 cassettes as follows: 1 - perpendicular medial and lateral margins, 2??perpendicular superior, inferior and posterior margins, 3-8 - tumor with closest anterior margin, 912??rest of the specimen. / 10/25/22 C. Received is one container labeled with the patient name and designated left breast skin lesion. The specimen consists of one irregular piece of leach white skin that measures 1.3 x 0.7 x 0.3 cm. The specimen is inked, serially sectioned and submitted entirely in one cassette. / 10/25/22 D. Received is one container labeled with the patient name and designated left breast new anterior margin. The specimen consists of a piece of fibroadipose tissue that measures 2.5 x 2.5 x 1 cm. The specimen is oriented by a suture as new margin. The specimen is inked as follows, new margin black and old margin blue. The specimen is serially sectioned and do not reveal any mass lesion and submitted in entirely in three cassettes. / 10/25/22 E. Received is one container labeled with the patient name and designated left breast new superior margin. The specimen consists of a piece of fibroadipose tissue that measures 2.0 x 1.5 x 1 cm. The specimen is oriented by a suture as new margin. The specimen is inked as follows, new margin black and old margin blue. The specimen is serially sectioned and do not reveal any mass lesion and submitted in entirely in two cassettes. / TERRIE 10/25/22 TC:0 CPT: 70391 x2, 00936 x3
[2022-10-24] MEDS: 0.9% Normal Saline (Pres. free 10 ML Vial (12:05)
[2022-10-24] MEDS: Isosulfan Blue 1% 5 ML Vial (12:05)
--- NOTE | 2022-10-24 12:14 | OP.PCM_ITS ---
Problems Associated Problem List Diagnoses (1) Invasive lobular carcinoma of left breast in female: Report of Operation Date of Procedure: 10/24/22 Pre-Operative Diagnosis: Left breast lobular cancer, lower outer quadrant Suspicious skin lesion of the left breast Post-Operative Diagnosis: Same Surgery/Procedure Performed:: 1. Ultrasound-guided wire localization 2. Left axillary sentinel lymph node biopsy 3. Left partial mastectomy 4. Excision of left breast skin lesion 5. New superior margin 6. New anterior margin Type of Anesthesia: General/Regional Specimen's removed: 1. Left axillary lymph nodes 2. Left partial mastectomy 3. Left breast skin lesion, 1.5 cm Description of Procedure: Synoptic Portion: Element Response Options Operation performed with curative intent. Yes Tracer(s) used to identify sentinel nodes in the upfront surgery (non- neoadjuvant) setting (select all that apply). N/A Tracer(s) used to identify sentinel nodes in the neoadjuvant setting (select all that apply). Dye and radiotracer All nodes (colored or non-colored) present at the end of a dye-filled lymphatic channel were removed. Yes All significantly radioactive nodes were removed. Yes All palpably suspicious nodes were removed. N/A Biopsy-proven positive nodes marked with clips prior to chemotherapy were identified and removed. N/A Patient was brought back to the operating room and the left breast was inspected with ultrasound. The mass was identified and under direct ultrasound guidance the wire was placed into the mass. Next 5 cc of Lymphazurin was injected in the subareolar space in the left breast. Next 5 cc of saline was injected in the subareolar space in the left breast. The left breast was then massaged. The left breast and axilla were prepped in the normal sterile fashion. Left axillary incision was marked and injected with local anesthetic. Scalpel was used to make incision and deepened the incision to the axillary fascia. The axillary fascia was incised. 2 lymph nodes were identified and both were removed using clips and sharp dissection. The axilla was inspected with the neoprobe and there were no further radioactive lesions or blue lesions. There were no more palpable lesions. The axilla was irrigated and suctioned dry and packed with a wet Ray-Elham. Next an incision was made in the 4 o'clock position of the breast and electrocautery was used to maintain hemostasis. The wire was brought into the incision. The wire was followed down to the mass. Mass was excised using electrocautery dissection. It was sent for pathology and x-ray and it was marked. The x-ray confirmed that the clip was in the mass as well as the entire wire. The cavity was irrigated and suctioned dry and hemostasis was obtained using electrocautery. The margins on the mass came back close anteriorly. Next a new anterior margin and new superior margin were taken and marked with suture and sent for pathology. The skin incisions of both areas were closed with interrupted 3-0 Vicryl suture and running 4-0 Monocryl. Next the medial left breast skin lesion was excised. It was injected with local anesthetic and an elliptical incision was made around this lesion. The lesion in border measured 1.5 cm in longest dimension. It was sent for pathology. The subcutaneous tissue was cauterized and then the lesion was closed with a running 4-0 Monocryl suture. Glue was applied to all incisions. Patient was awoken and taken to PACU in stable condition. Admit VTE Documentation VTE Mechan Device Prophylaxis: SCD's
[2022-10-24] MEDS: Lidocaine 1% /Epi 1:100 (20ml) 20 ML Vial (12:20)
--- NOTE | 2022-10-24 12:50 | BI_ITS ---
SURGICAL BREAST SPECIMEN RADIOGRAPH CLINICAL: Document presence of tissue clip marker in biopsy specimen. FINDINGS: Specimen shows presence of tissue clip marker. Electronically Signed: Johan Bui MD at 13:24 EDT , BI/Breast Biopsy Specimen IMPRESSION: undefined
--- NOTE | 2022-10-24 12:58 | DCINST_ITS ---
Discharge Instructions Diet Discharge Diet: No restrictions Activity Discharge Activity: May Not Drive (for 2-3 days or while taking narcotic pain medications.) and May Shower (tomorrow) Lifting Restrictions: 15 lbs for 1 week Dressing / Incision Call your doctor if your incision/area has: Continuous Slow Oozing, Sudden Increased Bleeding, Increased Pain/ Swelling, Increased Redness, Foul Smelling Discharge and Swelling at the incision site Call your doctor if you observe: Fever of 101 or Higher and Uncontrolled pain Suture Line Care: Avoid Pulling/Pushing and Avoid Pinching/Bending Cleanse incision/area with: Soap & Water Additional Dressing/Incision Instructions:: Remove bulky dressing tomorrow. Wear sports bra for support Follow Up Care Please Follow Up With: Thaddeus Daniel MD When: Please call to schedule 2 week follow up appointment. [phone] Test Results: Test results from this visit will be discussed in further detail at your follow- up appointment, if applicable. Discharge Plan Admission Attending Provider: Thaddeus Daniel Primary Care Provider: Ke Weiss Instructions Additional Instructions / Restrictions: Ibuprofen and Tylenol for pain, Percocet for breakthrough Discharge Orders/Prescriptions Prescriptions: New oxycodone-acetaminophen [Percocet] 5-325 mg tablet 1 tab PO Q4H PRN (Reason: pain) 5 Days Qty: 20 0RF No Action calcium carbonate [Calcium 500] 500 mg calcium (1,250 mg) tablet,chewable 1,200 mg PO DAILY cholecalciferol (vitamin D3) 25 mcg (1,000 unit) capsule 50 mcg PO DAILY fluticasone propionate 50 mcg/actuation spray,suspension 2 spray INTRANASAL DAILY PRN PRN (Reason: nasal congestion) Patient Comments: USE 2 SPRAYS IN EACH NOSTRIL ONCE DAILY Referrals / Follow Up: Ke Weiss MD [Primary Care Provider] - Disposition Disposition (needs filled in before D/C Order can be placed): Home, Self Care
[2022-10-24 13:36] VITALS: BP 122/56; BP 132/69; PULSE 85; RESP 16; TEMP 36.2; O2SAT 98
[2022-10-24 13:45] VITALS: BP 122/56; BP 125/82; PULSE 82; RESP 16; O2SAT 97
[2022-10-24 14:00] VITALS: BP 122/56; BP 140/76; PULSE 83; RESP 16; TEMP 36.1; O2SAT 98
[2022-10-24 14:45] VITALS: BP 122/56; BP 137/61; PULSE 56; RESP 16; TEMP 36.4; O2SAT 100
== END 2022-10-24 15:18 | disposition home or self-care (01) ==
LOC: SDC 08:33 → AC 08:35
PROVIDERS: PCP Family Medicine; Referring Provider Surgery; Visit Provider Surgery
PROC: 0HBV0ZZ Excision of Bilateral Breast, Open Approach (ICD-10-PCS; CPT 19302; principal; 2022-10-24 11:45)
DX: D05.02 Lobular carcinoma in situ of left breast (principal); N64.9 Disorder of breast, unspecified; Z87.891 Personal history of nicotine dependence; L82.1 Other seborrheic keratosis
CPT/HCPCS: 38525; 19125; 19083; 38900; 01610; 38792; 76098; 88305; 88307; 88331; 88341; 88342; A4648; A9541; J7120; J2405; J3490; Q9968

== ENCOUNTER 2022-11-06 07:28 | Day surgery (SDC) | payer MEDICARE, BC, SELFPAY ==
--- NOTE | 2022-11-06 | BRBX_PTH ---
PATIENT: COLTON CRABTREE [place] [facility] [place][id number] AGE/SX: 67/F ROOM: RE11/06/[address]: Dr. Thaddeus Daniel MD : 1955 BED: DIS: 11/06/2022 SPEC #: [id number] RECD: 11/06/22 08:53 STATUS: WILMA REQ #: [id number] JOANNE: 11/06/22 00:[address]: Thaddeus Daniel DEPT: SURGICAL PATHOLOGY RECD BY: Queta Mak ENTERED: 11/06/22 10:56 SP TYPE: BREAST BX OTHR DR: Dr. Curt Weiss MD Tissues: Left breast, NOS Procedures: Frozen Section (charge) Frozen Section Add'l ([facility]) Surgery Specimen Level IV HEADER OPERATION: Excision, re-excision for margins breast biopsy PRE-OP DIAGNOSIS: Invasive lobular carcinoma of left breast TISSUE SUBMITTED: Left breast new superior margin, suture carter new margin, frozen section FROZEN SECTION DIAGNOSIS Left breast, new superior margin, biopsy/excision: No evidence of carcinoma. AM:ta 11/06/2022 MICROSCOPIC DIAGNOSIS Left breast, new superior margin, excision: Focal atypical lobular hyperplasia. Intraductal hyperplasia without atypia. Fibrocystic changes and focal changes consistent with radial scar. Changes consistent with previous biopsy site. Negative for invasive carcinoma. See comment. SJ:ta 11/07/2022 COMMENT Please make reference to previous specimen ([id number]) left breast mass, lumpectomy with diagnosis of invasive lobular carcinoma and lobular carcinoma in situ and atypical lobular hyperplasia. Case has been reviewed in consultation with Dr. Julian who concurs with the above diagnosis. IDC:AM MICROSCOPIC DESCRIPTION Slides are reviewed. GROSS DESCRIPTION Received fresh for frozen section diagnosis labeled with the patient's name is a specimen designated left breast new superior margin. The specimen consists of a piece of fibroadipose tissue measuring 6.0 x 4.0 x 1.0 cm. The specimen is oriented by a suture marking new margin. The new margin is inked black and old margin is inked blue. Sections reveal leach-yellow fibroadipose cut surfaces with focal fibrous areas. The entire specimen is submitted as follows: 1-5 - frozen section, fibrous areas, 6-10 - rest of the specimen. / SJ:ta 11/06/2022 TC:5 CPT: 33368, 47978, 59127 x4
[2022-11-06] MEDS: Lactated Ringers 1,000 ML 15 ML IV (07:52)
[2022-11-06 07:54] VITALS: BP 119/64; PULSE 65; RESP 18; TEMP 36.4; O2SAT 96; BMI 24.1
--- NOTE | 2022-11-06 08:15 | HP.PCM.SX_ITS ---
HPI - General HPI Narrative COLTON CRABTREE, is a 67 F who presents for reexcision of margins. Patient had partial mastectomy and her superior margins were positive. She is having some soreness around her incision since last week when she tried to mow her lawn. [facility] Medical History (Updated 11/03/22 @ 08:28 by Mari Smith) Anxiety Cancer Former smoker Heartburn Leg cramps Seasonal allergies Skin lesion Wears glasses Home Medications calcium carbonate 500 mg calcium (1,250 mg) chewable tablet (Calcium 500) 1,200 mg PO DAILY 09/22/22 [History Last Taken Unknown] cholecalciferol (vitamin D3) 25 mcg (1,000 unit) capsule 50 mcg PO DAILY 09/22/22 [History Last Taken Unknown] fluticasone propionate 50 mcg/actuation nasal spray,suspension 2 spray intranasal DAILY PRN PRN nasal congestion 10/20/22 [History Last Taken Unknown] Allergy/AdvReac Type Severity Reaction Status Date / Time erythromycin base Allergy Hives Verified 11/03/22 08:23 Surgical History (Updated 11/03/22 @ 08:28 by Mari Smith) History of carpal tunnel release of both wrists History of lumpectomy of left breast History of tubal ligation Social History Smoking Status: Former smoker alcohol intake: current substance use type: does not use ROS Constitutional Constitutional: Denies fatigue Eyes Eyes: Denies blurry vision ENT HEENT: Denies abnormal hearing Cardiovascular Cardiovascular: Denies chest pain Respiratory/Chest Respiratory/Chest: Denies cough or dyspnea Gastrointestinal Gastrointestinal: Denies abdominal pain Genitourinary Genitourinary: Denies change in urinary stream Neurologic Neurologic: Denies abnormal gait Vital Signs Vital Signs Vital Signs: 11/06/22 07:54 11/06/22 07:54 Temperature 97.6 F L Temperature Source Temporal Pulse Rate 65 Respiratory Rate 18 Respiratory Pattern Normal Blood Pressure 119/64 Blood Pressure Mean 82 Blood Pressure Source Monitor Blood Pressure Position Semi-Fowlers Blood Pressure Location Right Arm Pulse Ox 96 Oxygen Delivery Method Room Air Weight Weight: 154 lb Body Mass Index (BMI) 24.1 Physical Exam Const oriented x3 and no apparent distress Resp normal respiratory effort Cardio regular rate and regular rhythm GI normal to inspection, nondistended, normoactive bowel sounds Assessment & Plan Assessment/Plan (1) Invasive lobular carcinoma of left breast in female: PLAN: Patient had a positive superior margin. She is back for reexcision of margins. I discussed the procedure with her including the risks of bleeding and infection and the need for further surgery including a possible mastectomy. I will reexcised the superior margin and sent for frozen section and then closed the incision. Patient's lymph nodes were negative and the other skin incision was negative. Thaddeus Daniel MD Pager: [facility] [address] [place] [address] Office:
[2022-11-06] MEDS: Cefazolin 2 GM in 0.9% Normal Saline 100 ML IV (08:30)
[2022-11-06] MEDS: Bupivacaine 0.25% 30 ML Vial (08:44)
--- NOTE | 2022-11-06 09:08 | OP.PCM_ITS ---
Report of Operation Date of Procedure: 11/06/22 Pre-Operative Diagnosis: Invasive lobular carcinoma of the left breast upper ou ter quadrant with positive margins after excision Post-Operative Diagnosis: Same Surgery/Procedure Performed:: Reexcision of superior margin of the left breast Type of Anesthesia: General/Regional Specimen's removed: Left breast new superior margin Estimated Blood Loss (mL): 10 Description of Procedure: Patient was brought back to the operating room and general anesthesia was induced. The left breast was prepped and draped in usual sterile fashion. The prior incision was injected with local anesthetic and a scalpel was used to reopen the incision and the seroma was suctioned. The new superior margin was taken and dissected using electrocautery. The new margin was marked with a suture. It was sent for frozen section. The cavity was irrigated and suctioned dry and hemostasis was obtained using electrocautery. Next the skin incision was closed with interrupted 3-0 Vicryl sutures and Dermabond. Patient was taken to PACU in stable condition. Admit VTE Documentation VTE Mechan Device Prophylaxis: SCD's
--- NOTE | 2022-11-06 09:09 | DCINST_ITS ---
Discharge Instructions Diet Discharge Diet: No restrictions Activity Discharge Activity: May Not Drive (for 2-3 days or while taking narcotic pain medications.) and May Shower Lifting Restrictions: 10 lbs for 2 weeks Dressing / Incision Call your doctor if your incision/area has: Continuous Slow Oozing, Sudden Increased Bleeding, Increased Pain/ Swelling, Increased Redness, Foul Smelling Discharge and Swelling at the incision site Call your doctor if you observe: Fever of 101 or Higher Suture Line Care: Avoid Pulling/Pushing and Avoid Pinching/Bending Cleanse incision/area with: Soap & Water Follow Up Care Please Follow Up With: Thaddeus Daniel MD When: Please call to schedule 2 week follow up appointment. [phone] Test Results: Test results from this visit will be discussed in further detail at your follow- up appointment, if applicable. Discharge Plan Admission Attending Provider: Thaddeus Daniel Primary Care Provider: Ke Weiss Instructions Additional Instructions / Restrictions: Ibuprofen and Tylenol for pain Discharge Orders/Prescriptions Prescriptions: No Action calcium carbonate [Calcium 500] 500 mg calcium (1,250 mg) tablet,chewable 1,200 mg PO DAILY cholecalciferol (vitamin D3) 25 mcg (1,000 unit) capsule 50 mcg PO DAILY fluticasone propionate 50 mcg/actuation spray,suspension 2 spray INTRANASAL DAILY PRN PRN (Reason: nasal congestion) Patient Comments: USE 2 SPRAYS IN EACH NOSTRIL ONCE DAILY Referrals / Follow Up: Ke Weiss MD [Primary Care Provider] - Disposition Disposition (needs filled in before D/C Order can be placed): Home, Self Care
[2022-11-06 09:35] VITALS: BP 119/64; BP 123/63; PULSE 87; RESP 16; TEMP 36.8; O2SAT 95
[2022-11-06 09:45] VITALS: BP 119/64; BP 123/71; PULSE 76; RESP 16; O2SAT 92
[2022-11-06 09:54] VITALS: BP 119/64; BP 128/68; PULSE 79; RESP 16; TEMP 36.6; O2SAT 94
[2022-11-06 10:25] VITALS: BP 119/64
== END 2022-11-06 10:31 | disposition home or self-care (01) ==
LOC: SDC 07:28 → AC 07:29
PROVIDERS: PCP Family Medicine; Referring Provider Surgery; Visit Provider Surgery
PROC: (CPT 19301; principal; 2022-11-06 08:45)
DX: C50.912 Malignant neoplasm of unspecified site of left female breast (principal); Z87.891 Personal history of nicotine dependence
CPT/HCPCS: 11606; 00400; 88305; 88331; 88332; J7120; J2405; J3475

== ENCOUNTER → 2023-02-01 | Outpatient (CLI) | payer MEDICARE, BC, SELFPAY ==
[2023-02-01 10:31] LABS: PTHIN 48.9 pg/mL (18.4-80.1)
[2023-02-01 10:34] LABS: Vitamin D,25 Hydroxy 54.6 ng/mL
[2023-02-01 10:47] LABS: Ionized Calcium 4.87 mg/dL (4.36-5.20)
[2023-02-01 11:20] LABS: ALB/GLOB Ratio 0.9 RATIO (0.9-2.4); AST(SGOT) 18 U/L (15-37); Alanine Aminotransfer ALT/SGPT 24 U/L (13-56); Albumin, Serum 3.4 g/dL (3.2-5.0); Alkaline Phosphatase 68 U/L (45-117); Anion Gap 7 (5-15); BUN 10 mg/dL (7-18); BUN/Creat Ratio 16.1 RATIO (10-20); Chloride 108 mmol/L (98-107); Cholesterol 224 mg/dL (200); Creatinine, Serum 0.62 mg/dL (0.55-1.02); EST Glomerular Filtration Rate 102 mL/min (>60); Est Glom Filt Rate - Afr Amer 123 mL/min (>60); Globulin 3.7 g/dL (2.2-4.2); Glucose 128 mg/dL (74-106); High Density Lipoprotein 61 mg/dL; Magnesium 2.3 mg/dL (1.6-2.6); Potassium 4.1 mmol/L (3.5-5.1); Protein, Total 7.1 g/dL (6.4-8.2); Sodium Level 140 mmol/L (136-145); Thyroid Stim Hormone (TSH) 1.05 uIU/mL (0.358-3.74); Triglycerides 113 mg/dL; Very Low Density Lipoprotein 23 mg/dL (5-40)
== END | disposition home or self-care (01) ==
LOC: MFPLAB 09:23
PROVIDERS: PCP Family Medicine; Visit Provider Family Medicine
DX: R73.01 Impaired fasting glucose (principal); E78.5 Hyperlipidemia, unspecified; M81.0 Age-related osteoporosis without current pathological fracture
CPT/HCPCS: 36415; 80053; 80061; 82306; 82330; 83735; 83970; 84443

== ENCOUNTER → 2023-03-15 | Outpatient (CLI) | payer MEDICARE, BC, SELFPAY ==
--- NOTE | 2023-03-15 14:57 | BD_ITS ---
STUDY: DUAL ENERGY X-RAY ABSORPTIOMETRY / DXA REASON FOR EXAM: Female, 67 years old. Screening TECHNIQUE: Bone Mineral Density (BMD) measurements of lumbar spine and bilateral hips were obtained. COMPARISON: Comparison is made with prior study dated March 03, 2021. FINDINGS: Lumbar Spine (L1-L4): g/cm2 (0.672) / T-score (-3.1) / Z-score (-1.3) Findings are suggestive of osteoporosis with a high fracture risk. Left Femur Total: g/cm2 (0.742) / T-score (-1.6) / Z-score (-0.3) Left Femoral Neck: g/cm2 (0.566) / T-score (-2.6) / Z-score (-0.9) Right Femur Total: g/cm2 (0.725) / T-score (-1.8) / Z-score (-0.4) Right Femoral Neck: g/cm2 (0.606) / T-score (-2.2) / Z-score (-0.5) The T-Scores on the most recent prior examination were: Lumbar Spine (L1-L4): There has been improvement of bone density since the previous examination. Left Femur Total: which represents an improvement of 4.1%. Right Femur Total: which represents an improvement of 4.6%. BD/Dexa Bone Density Study IMPRESSION: The patient is considered osteoporotic as outlined below according to World Adria Organization (WHO) criteria with a high fracture risk. There has been improvement of bone density since the previous examination. Reference Information: The T-score is the number of standard deviations above or below the standard which is normal for young adults at their peak bone mineral density. The World Health Organization (WHO) interprets the T-scores as follows: Above -1 Normal bone density Between -1 and -2.5 Osteopenia Equal to / or below -2.5 Osteoporosis As a practical clinical guideline, osteopenia may be graded as follows: Mild -1 through -1.5 Moderate -1.6 through -2.0 Severe -2.1 through -2.4 The Z-score is the number of standard deviations above or below age-matched controls. A Z-score of less than -1.5 would be considered abnormal. References: 1. NIH Osteoporosis and Related Bone Diseases www osteo.org 2. International Society for Clinical Densitometry www iscd.org 3. National Osteoporosis Foundation www nof.org Electronically Signed: Johan Bui MD at 12:44 EST ,
== END | disposition home or self-care (01) ==
LOC: OPBD 14:53
PROVIDERS: PCP Family Medicine; Referring Provider Internal Medicine Hematology & Oncology; Visit Provider Internal Medicine Hematology & Oncology
DX: C50.912 Malignant neoplasm of unspecified site of left female breast (principal); Z78.0 Asymptomatic menopausal state
CPT/HCPCS: 77080

== ENCOUNTER → 2023-06-22 | Outpatient (CLI) | payer MEDICARE, BC, SELFPAY ==
--- NOTE | 2023-06-22 08:48 | US_ITS ---
STUDY: ULTRASOUND BREAST - LEFT REASON FOR EXAM: Female, 67 years old. Palpable mass TECHNIQUE: Axial and longitudinal images of the LEFT breast were performed with a high resolution ultrasound transducer. # OF IMAGES: 68 COMPARISON: Diagnostic mammogram earlier today FINDINGS: LEFT Breast: Heterogeneous background echotexture. At 9:00, 5 cm from the nipple, in the area of the palpable abnormality, ultrasound fails to demonstrate a discrete solid or cystic mass is consistent with normal breast parenchyma.: US/Breast Limited Unilateral IMPRESSION: Normal diagnostic mammogram and left breast ultrasound. However, biopsy of any palpable abnormality should be performed if clinically indicated. ASSESSMENT CATEGORY: BIRADS Category 1: Negative. A letter regarding these results will be sent to the patient by the facility within 30 days. Electronically Signed: Michael Abreu MD at 10:26 EST ,
--- NOTE | 2023-06-22 08:48 | BI_ITS ---
MAMMOGRAPHY - BILATERAL DIAGNOSTIC REASON FOR EXAM: Female, 67 years old. LUMP IN LEFT BREAST PERTINENT HISTORY: Non-contributory. TECHNIQUE: Digital examination. Mediolateral oblique (MLO) and craniocaudad (CC) views of both breasts were obtained. CAD: CAD was performed on this study. COMPARISON: 09/19/2022 FINDINGS: Breast Composition: There are scattered areas of fibroglandular density. There are no dominant masses or suspicious calcifications. No other significant abnormalities are identified. BI/DIAG MAMM W/CAD, BILAT IMPRESSION: Stable bilateral diagnostic mammogram. Ultrasound of the palpable abnormality will be obtained. ASSESSMENT CATEGORY: BIRADS Category 0: Incomplete. Need additional imaging evaluation. A letter regarding these results will be sent to the patient by the facility within 30 days. FOLLOW UP RECOMMENDATION: Ultrasound Recommended. (I) Approximately 10% of breast cancers are not detected by mammography. A normal mammogram should not delay biopsy of a clinically suspicious abnormality. Electronically Signed: Michael Abreu MD at 9:46 EST ,
== END | disposition home or self-care (01) ==
LOC: OPBI 08:47
PROVIDERS: PCP Family Medicine; Referring Provider Internal Medicine Hematology & Oncology; Visit Provider Internal Medicine Hematology & Oncology
DX: N64.4 Mastodynia (principal); N63.20 Unspecified lump in the left breast, unspecified quadrant
CPT/HCPCS: 76642; 77062; 77066; G0279

== ENCOUNTER 2023-08-20 06:47 | Outpatient (CLI) | payer MEDICARE, BC, SELFPAY ==
--- NOTE | 2023-08-20 06:48 | CT_ITS ---
STUDY: CT CHEST WITHOUT CONTRAST REASON FOR EXAM: Female, 67 years old. Hyperlipidemia, unspecified RADIATION DOSAGE (If Supplied By Facility): CTDIvol = ( 12.19 ) mGy, DLP = ( 243.79 ) mGycm TECHNIQUE: Transaxial imaging was performed without the administration of intravenous contrast material. Cardiac over read examination. Individualized dose optimization techniques were used for this CT. COMPARISON: No relevant priors. FINDINGS: CHEST The lungs are normal. There is no demonstrated pleural abnormality. There are calcifications of the coronary arteries. There are small lymph nodes within the mediastinum, which are normal in size and morphology most compatible with reactive lymph hyperplasia. Normal hilar regions. Normal unenhanced pulmonary arteries. There is atherosclerotic calcification of the aortic arch. Normal osseous structures. There is no demonstrated abnormality of the visualized upper abdomen. CT/Limited Chest CT Cardiac Only IMPRESSION: Coronary artery calcification. Electronically Signed: Johan Bui MD at 11:12 EDT ,
--- NOTE | 2023-08-20 07:55 | CA.SCORE ---
Calcium Scoring Date of Study:: 08/20/23 Indications Indications: Hyperlipemia Coronary Calcium Scoring: High-resolution Computed Tomographic imaging of the chest was performed on [08/20/2023], with particular attention paid to the coronary arteries. Images from the examination were analyzed for the presence and extent of coronary artery calcification , using coronary calcium quantification software. The patient tolerated the procedure well and there were no complications. The results of the coronary calcification analysis are provided below. Findings Coronary Artery Left Main (LM): 14.7 Left Anterior Descending (LAD): 29 Left Circumflex (LCX): 0 Right Coronary Artery (RCA): 0 Total Agatston Score: 43.7 Percentile Rankin-75% Calcium Scoring Interpretation: Different methods to categorize the overall amount of coronary plaque. Overall amount CAC SIS Visual of coronary plaque P1 Mild -100 <2 1-2 vessels with mild amount of plaque P2 Moderate 101-300 3-4 1-2 vessels with moderate amount, 3 vessels with mild amount of plaque P3 Severe 301-999 5-7 3 vessels with moderate amount, 1 vessel with severe amount of plaque P4 Extensive >1000 >8 2-3 vessels with severe amount of plaque Calcium Score: Mild: 1-2 vessels w/mild amount of plaque Conclusion: Mild atherosclerotic plaquing noted.
== END 2023-08-20 23:59 | disposition home or self-care (01) ==
PROVIDERS: PCP Family Medicine; Referring Provider Family Medicine; Visit Provider Family Medicine
DX: E78.5 Hyperlipidemia, unspecified (principal); I25.10 Atherosclerotic heart disease of native coronary artery without angina pectoris
CPT/HCPCS: 75571; 76380

== ENCOUNTER → 2024-06-23 | Outpatient (CLI) | payer MEDICARE, BC, SELFPAY ==
--- NOTE | 2024-06-23 08:45 | BI_ITS ---
PROCEDURE: SCRN MAMM (CAD)W/GURJIT BILAT REASON FOR EXAM: F, Age 68 y/o, personal history of breast cancer. Prior left lumpectomy and lymph node dissection. Grandmother with breast cancer. TECHNIQUE: Bilateral screening digital breast tomosynthesis with 2D and 3D images. Computer aided detection. COMPARISON: Prior exam(s) dating back to June 22, 2023.. FINDINGS: The breasts are heterogeneously dense which may obscure small masses. The patient is status post lumpectomy in the deep upper lateral aspect of the left breast. History of prior left axillary node dissection. No suspicious masses, areas of developing architectural distortion, or suspicious calcifications. BI/SCRN MAMM (CAD)W/GURJIT BILAT IMPRESSION: BI-RADS 2: BENIGN. RECOMMEND ANNUAL MAMMOGRAPHIC SCREENING. Follow-up code: Routine Follow-up The patient will be notified of the results by letter. Reading Location: [place] [id number]
== END | disposition home or self-care (01) ==
LOC: OPBI 08:40
PROVIDERS: PCP Family Medicine; Referring Provider Student in an Organized Health Care Education/Training Program; Visit Provider Student in an Organized Health Care Education/Training Program
DX: Z12.31 Encounter for screening mammogram for malignant neoplasm of breast (principal)
CPT/HCPCS: 77063; 77067

== ENCOUNTER → 2024-08-04 | Outpatient (CLI) | payer MEDICARE, BC, SELFPAY ==
[2024-08-04 10:52] LABS: Ionized Calcium Order ORDER TUBE
[2024-08-04 11:50] LABS: Ionized Calcium 1.18 mmol/L (1.09-1.30)
[2024-08-04 13:21] LABS: Anion Gap 9 (5-15); BUN 11 mg/dL (4-19); BUN/Creat Ratio 17.2 RATIO (10-20); Carbon Dioxide 24.4 mmol/L (21.0-32.0); Chloride 107 mmol/L (98-108); Cholesterol 217 mg/dL (<=200); Creatinine, Serum 0.63 mg/dL (0.70-1.20); EST Glomerular Filtration Rate 96 (>60); Glucose 108 mg/dL (70-99); High Density Lipoprotein 53 mg/dL; Low Density Lipoprotein Calc. 136 mg/dL; Magnesium 2.1 mg/dL (1.5-2.2); Potassium 4.1 mmol/L (3.3-5.1); Sodium Level 140 mmol/L (133-145); Triglycerides 140 mg/dL; Very Low Density Lipoprotein 28 mg/dL (5-40); Vitamin D,25 Hydroxy 51.8 ng/mL (30-100); cholesterol:hdl ratio screen 4.12
[2024-08-04 13:32] LABS: PTHIN 35 pg/mL (11-61)
== END | disposition home or self-care (01) ==
LOC: MFPLAB 09:49
PROVIDERS: PCP Family Medicine; Referring Provider Family Medicine; Visit Provider Family Medicine
DX: M81.0 Age-related osteoporosis without current pathological fracture (principal); E78.5 Hyperlipidemia, unspecified
CPT/HCPCS: 36415; 80048; 80061; 82306; 82330; 83735; 83970; 84100; 84443

== ENCOUNTER → 2025-03-19 | Outpatient (CLI) | payer MEDICARE, BC, SELFPAY ==
--- NOTE | 2025-03-19 09:07 | BD_ITS ---
PROCEDURE: DEXA BONE DENSITY STUDY 03/19/2025 REASON FOR EXAM: F, age 69 y/o . Postmenopausal. TECHNIQUE: Procedure Code: BDDBD Modality: DX Procedure: DEXA BONE DENSITY STUDY COMPARISON: March 15, 2023. FINDINGS: BMD and T-SCORES Lumbar spine: 0.695 g/cm2, T-score -2.9 Levels: L1 through L4 Change from prior: Loss of 3.3%. Left femoral neck: 0.609 g/cm2, T-score -2.2 Femoral neck comparison data not recommended for monitoring change. Left total hip: 0.737 g/cm2, T-score -1.7 Change from prior: Loss of 0.7%. Right femoral neck: 0.602 g/cm2, T-score -2.2 Femoral neck comparison data not recommended for monitoring change. Right total hip: 0.735 g/cm2, T-score -1.7 Change from prior: Improvement of 1.3%. The World Health Organization has defined the following categories based on bone density: Normal bone density: T-score equal to or greater than -1.0 Osteopenia: T-score between -1.0 and -2.5 Osteoporosis: T-score equal to or less than -2.5 FRAX (or Comparable) Fracture Risk Assessment: 10 Year Probability of Fracture: Major Osteoporotic Fracture: 30% Hip Fracture: 7% (Note: FRAX is not to be reported in setting of normal range bone density, osteoporosis on DEXA, known history of osteoporosis, prior osteoporotic hip or vertebral fracture, or for any patient undergoing pharmacological treatment for bone loss.) The National Osteoporosis Foundation (NOF) recommends pharmacological treatment for patients with a FRAX 10-year risk of 3% or higher for a hip fracture, or 20% or higher for a major osteoporotic fracture, to prevent osteoporosis and reduce fracture risk. The patient does meet the pharmacological treatment recommendations for prevention of osteoporosis. BD/Dexa Bone Density Study IMPRESSION: OSTEOPOROSIS. Recommend follow-up as clinically warranted. Reading Location: [place] [id number]
== END | disposition home or self-care (01) ==
PROVIDERS: PCP Family Medicine
DX: Z13.820 Encounter for screening for osteoporosis (principal); Z78.0 Asymptomatic menopausal state
CPT/HCPCS: 77080